=== PATIENT | female | born 1980 | race Caucasian/White ===

== ENCOUNTER → 2016-10-13 | Outpatient (CLI) | payer MEDICAID, OTHER ==
[~2016-10-13] MED LIST: ACET1TAB86 PO; ALPR.5 PO; IBUP-232 PO; METR-1 PO; PRENTAB PO; PROC2.5C RECTAL
== END ==
LOC: HPND 10:54
PROVIDERS: ATTEND Obstetrics & Gynecology Obstetrics
DX: O09.522 Supervision of elderly multigravida, second trimester (principal); O09.292 Supervision of pregnancy with other poor reproductive or obstetric history, second trimester; O99.322 Drug use complicating pregnancy, second trimester
CPT/HCPCS: 76811

== ENCOUNTER → 2016-10-27 | Outpatient (CLI) | payer MEDICAID, OTHER | LOC: HPND 15:31 | PROVIDERS: ATTEND Obstetrics & Gynecology | DX: O09.522 Supervision of elderly multigravida, second trimester (principal); O09.292 Supervision of pregnancy with other poor reproductive or obstetric history, second trimester; O35.3XX0 Maternal care for (suspected) damage to fetus from viral disease in mother, not applicable or unspecified; O99.322 Drug use complicating pregnancy, second trimester; Z3A.21 21 weeks gestation of pregnancy | CPT/HCPCS: 76815; 76817 ==

== ENCOUNTER → 2016-11-24 | Outpatient (CLI) | payer MEDICAID, OTHER | LOC: HPND 13:30 | PROVIDERS: ATTEND Obstetrics & Gynecology | DX: O09.522 Supervision of elderly multigravida, second trimester (principal); O09.292 Supervision of pregnancy with other poor reproductive or obstetric history, second trimester; O35.3XX0 Maternal care for (suspected) damage to fetus from viral disease in mother, not applicable or unspecified; O99.322 Drug use complicating pregnancy, second trimester; Z36 Encounter for antenatal screening of mother; Z3A.25 25 weeks gestation of pregnancy | CPT/HCPCS: 76816; 76817; 76825; 76827; 93325 ==

== ENCOUNTER → 2017-01-01 | Outpatient (CLI) | payer MEDICAID | LOC: HPND 09:04 | PROVIDERS: ATTEND Obstetrics & Gynecology | DX: O09.522 Supervision of elderly multigravida, second trimester (principal); O09.292 Supervision of pregnancy with other poor reproductive or obstetric history, second trimester | CPT/HCPCS: 76816 ==

== ENCOUNTER → 2017-01-27 | Outpatient (CLI) | payer MEDICAID ==
[~2017-01-27] MED LIST changes: -ALPR.5 PO; -METR-1 PO
== END ==
LOC: HPND 10:14
PROVIDERS: ATTEND Obstetrics & Gynecology
DX: O09.523 Supervision of elderly multigravida, third trimester (principal); O09.293 Supervision of pregnancy with other poor reproductive or obstetric history, third trimester
CPT/HCPCS: 76816

== ENCOUNTER → 2017-02-18 | Outpatient (CLI) | payer MEDICAID | LOC: HPND 14:23 | PROVIDERS: ATTEND Obstetrics & Gynecology | DX: O36.62X0 Maternal care for excessive fetal growth, second trimester, not applicable or unspecified (principal) | CPT/HCPCS: 76816; 76818; 76820; 76821 ==

== ENCOUNTER 2017-02-22 16:27 | Inpatient (IN) | payer MEDICAID ==
[2017-02-22] VITALS (10 sets, daily range): BP systolic 133–139; BP diastolic 69–80; PULSE 72–76; RESP 18; TEMP 97.8–99.1
[~2017-02-22 16:27] MED LIST changes: -ACET1TAB86 PO; -IBUP-232 PO; -PROC2.5C RECTAL
[2017-02-22] MEDS ORDERED: LACTATED RINGER'S 1000 ML INJ 1,000 ML IV PRN (16:31)
[2017-02-22] MEDS ORDERED: SODIUM CHLORID 0.9% 500 ML INJ 500 ML IV PRN (16:45)
[2017-02-22] MEDS ORDERED: CITRIC ACID-SODIUM CITRATE LIQ 30 ML UDC PO SCH (16:45)
[2017-02-22] MEDS ORDERED: ONDANSETRON HCL 4 MG/2 ML VIAL IV PRN (16:45)
[2017-02-22] MEDS ORDERED: MINERAL OIL 10 ML VIAL TOPICAL PRN (16:45)
[2017-02-22] MEDS ORDERED: LIDOCAINE HCL 1% 50 ML VIAL INFIL PRN (16:45)
[2017-02-22] MEDS ORDERED: OXYTOCIN 30 UNITS-500ML PREMIX 500 ML IV ONE (16:45)
[2017-02-22] MEDS ORDERED: LIDOCAINE HCL 1% 50 ML VIAL I-DERMAL PRN (16:45)
[2017-02-22] MEDS ORDERED: SODIUM CHLOR 0.9% 1000 ML INJ 1,000 ML IV PRN (16:51)
[2017-02-22] MEDS ORDERED: SODIUM CHLORIDE 0.9% FLUSH 10 ML FLUSH IV FLUSH PRN (17:15)
[2017-02-22] MEDS ORDERED: DINOPROSTONE 10 MG VAG INSERT VAGINAL ONE ×2 (17:15→17:45)
--- NOTE | 2017-02-22 17:29 | HHI.HP ---
HPI Chief Complaint Induction of labor Date Seen: Feb 22, 2017 Time Seen: 17:12 Travel History International Travel<30 Days: No Contact w/Intl Traveler<30Days: No Known Affected Area: No History of Present Illness HPI Patient is a 36 year old A1 at 38 and 1/7 weeks gestation by MONSTER 03/07/2017, who presents to the OB ED for induction of labor due to IUGR (9th percentile on 02/18/17). She denies leakage of fluid, vaginal bleeding, and contractions. She feels baby moving regularly. She denies VIERA/N/V/D/fever/sick contacts/SOB/calf pain/dizziness/seeing spots. OB care is with [facility] and she is status in September 2016. She had limited follow-up visits but was following with M due to AMA and history of stillborn at 5 months. She endorses a remote history of opioid abuse denies any this . She does endorse tobacco use. She did not obtain any labs through [facility]. Para: 1 : 2 History Past Medical History Medical History: Denies Significant Hx Obstetric History Obstetric History G1: Stillbirth at 19 weeks, unknown etiology G2: Current Ultrasound 02/18/2017: If [id number] grams, 9th percentile, ARMOND 11.1 cm, BPP 10/10 placenta is grade 12, anterior, no previa. Vertex presentation. Patient states she knows he is having ago. Patient did not obtain labs MSM consulted due to AMA and previous stillbirth Per [facility] chart: NON COMPLICANT WITH PNC AT [facility], has not been in since SEP. only has gone to ultrasounds at [facility]. 2014-stillborn at 19 wks--PPROM, delivered at home AMA Declined amnio, no genetic screening Ronal 1:279 Hx of IV drug use- Xanax BV--given rx 09/21-Neg/hr hpv 10/14/16, Give Pt a Lab Req for Drug screen at next visit. Past Surgical History Surgical History: No Previous Surgery Family History Family History: Negative Social History Alcohol Use: Yes (occasional wine "here and there") Tobacco Use: Yes (5 cigarettes per week) Substance Abuse: Yes (remote opiate use) Allergies-Medications (Allergen,Severity, Reaction): Coded Allergies: No Known Allergies (Unverified , 01/13/17) Home Meds Active Scripts Vit W/ Ferrous Fumara (Prenate Elite 26-0.6-0.4 mg)1 Tab Tab1 Tab PO DAILY #90 BOTTLE Ref 3 Prov:Tania Miranda CNM [employer]ER 09/22/16 Vit Without Vit A W/ (Nestabs Dha 32-1 mg)1 Jean Pierre Jean Pierre Sample #4 Prov:Laura Curtis ST[employer]KER 09/21/16 Review of Systems Except as stated in HPI: all other systems reviewed are Neg Physical Exam Vital Signs Date Time Temp Pulse Resp B/P Pulse Ox O2 Delivery O2 Flow Rate FiO2 02/22/17 17:04 76 139/75 02/22/17 17:04 99.1 18 Narrative GENERAL: Well-nourished, well-developed female in no apparent distress SKIN: Warm and dry. HEAD: Normocephalic and atraumatic. EYES: No scleral icterus. No injection or drainage. ENT: No nasal drainage noted. Mucous membranes pink. Airway patent. NECK: Supple, trachea midline. No JVD. CARDIOVASCULAR: Regular rate and rhythm without murmurs, gallops, or rubs. RESPIRATORY: Breath sounds equal bilaterally. No accessory muscle use. ABDOMEN/GI: Abdomen soft, non-tender, bowel sounds present, no rebound, no guarding GENITOURINARY: External Genitalia: intact and normal in appearance Cervix: Closed/thick/high, moderate consistency Presentation: Vertex Membranes: Intact Uterine Contractions: Absent FHT's: Category: 1 Baseline: 140 Reactive:y to 160 Variability: mod Decels: one variable noted EXTREMITIES: No cyanosis or edema. BACK: Nontender without obvious deformity. No CVA tenderness. NEUROLOGICAL: Awake and alert. Motor and sensory grossly within normal limits. Five out of 5 muscle strength in all muscle groups. Normal speech. Data Data Vital Signs Reviewed: Yes (T 90 9.1F, R 18, pulse 76, BP 139/75) Orders Admit To Inpatient (02/22/17 ) Code Status (02/22/17 16:31) Vital Signs (Adult) .Per protocol (02/22/17 16:31) Activity Oob Ad Bridget (02/22/17 16:31) Heart (02/22/17 16:31) Amnioinfusion (02/22/17 16:31) Urinary Catheter Management .ONCE (02/22/17 16:31) Lactated Ringer's 1000 Ml Inj (Lr 1000 M (02/22/17 17:00) Lactated Ringer's 1000 Ml Inj (Lr 1000 M (02/22/17 16:31) Sodium Chlorid 0.9% 500 Ml Inj (Ns 500 M (02/22/17 16:45) Sodium Chlor 0.9% 1000 Ml Inj (Ns 1000 M (02/22/17 16:51) Lidocaine 1% Inj (50 Ml) (Xylocaine 1% I (02/22/17 16:45) Citric Acid-Sodium Citrate Liq (Bicitra (02/22/17 16:45) Ondansetron Inj (Zofran Inj) (02/22/17 16:45) Fentanyl Inj (Fentanyl Inj) (02/22/17 16:45) Fentanyl Inj (Fentanyl Inj) (02/22/17 16:45) Complete Blood Count With Diff (02/22/17 16:31) Hold Clot (02/22/17 16:31) Abo/Rh Blood Type (02/22/17 16:31) Urinalysis - C+S If Indicated (02/22/17 16:31) Resp Oxygen Non Rebreathe Mask (02/22/17 ) ^ Epidural / Intrathecal Infus (02/22/17 16:31) Oxytocin 30 Units-500ml Premix (Pitocin (02/22/17 16:45) Lidocaine 1% Inj (50 Ml) (Xylocaine 1% I (02/22/17 16:45) Light Mineral Oil (Muri-Lube Oil) (02/22/17 16:45) Inpatient Certification (02/22/17 ) Specimen To Be Collected PRN (02/22/17 16:31) Group B Strep Pcr (Rapid) (02/22/17 16:37) Ob/Psych Drug Screen, Urine (02/22/17 16:39) Diet Clear Liquid (02/22/17 Dinner) Hepatitis Profile (02/22/17 16:48) No Care Spec Serology (02/22/17 16:48) Rapid Plasma Regin (Rpr) W Ttr (02/22/17 16:51) Rubella Immune Status (02/22/17 16:51) ^ Labor Induction (02/22/17 17:04) ^ Saline Lock (02/22/17 17:04) ^ Vaginal Insert (02/22/17 17:04) ^ Vaginal Lavage (02/22/17 17:04) Heart (02/22/17 17:04) Sodium Chloride 0.9% Flush (Ns Flush) (02/22/17 21:00) Sodium Chloride 0.9% Flush (Ns Flush) (02/22/17 17:15) Dinoprostone Vag Insert (Cervidil Vag In (02/22/17 17:15) Dinoprostone Vag Insert (Cervidil Vag In (02/22/17 17:15) Assessment/Plan Problem List: (1) with 38 completed weeks gestation (2) Poor patient attendance of care (3) Tobacco use complicating (4) History of opioid abuse (5) Previous stillbirth or demise, antepartum Assessment and Plan 36-year-old at 38 and 3/7 weeks who is admitted for induction of labor due to IUGR per [facility] recommendations. She is a [facility] and patient. Intrauterine : Category 1 tracing Patient desires vaginal delivery Intact membranes Initiate cervical ripening with Cervidil overnight Start Pitocin in the morning Epidural for pain CBC, UA, type and screen ordered Monitor heart tones Routine care Monitor vital signs. Noted initial temperature 99.1 F GBS unknown: Rapid GBS ordered. Start IV penicillin per protocol if positive History of opiate abuse: Per patient report. UDS ordered History of tobacco abuse: FHT, monitor for withdrawal post- SDW Kymberly Romo MD R1 Feb 22, 2017 17:29
[2017-02-22] MEDS: LACTATED RINGER'S 1000 ML INJ 1,000 ML IV SCH (17:48)
[2017-02-22 18:20] LABS: AUTOMATED NEUTROPHIL # 9.7 TH/MM3 (1.8-7.7); BASOPHIL % 0.4 % (0.0-2.0); EOSINOPHIL % 0.1 % (0.0-4.0); HEMO FLAGS DIFF FINAL; LYMPH % 16.6 % (9.0-44.0); LYMPHOCYTE # 2.1 TH/MM3 (1.0-4.8); MEAN CELL VOLUME 90.4 FL (80.0-100.0); MEAN CORPUSCULAR HGB CONC 33.2 % (32.0-36.0); MONO % 4.8 % (0.0-8.0); NEUT % 78.1 % (16.0-70.0); PLATELET COUNT 227 TH/MM3 (150-450); RED BLOOD COUNT 3.77 MIL/MM3 (4.00-5.30); RED CELL DISTRIBUTION WIDTH 12.7 % (11.6-17.2); WHITE BLOOD COUNT 12.5 TH/MM3 (4.0-11.0)
[2017-02-22 18:23] LABS: BLOOD, URINE NEG (NEG); COMMENT (UR) CULT NOT INDICATED; CULTURE IF INDICATED CULT NOT INDICATED; GLUCOSE,URINE NEG (NEG); KETONE, URINE NEG (NEG); MUCUS URINE FEW /lpf (OCC); NITRITE,URINE NEG (NEG); SQUAMOUS EPITHELIAL CELL URINE 1 /hpf (0-5); URINE COLOR YELLOW (YELLW/STRAW)
[2017-02-22 18:33] LABS: AMPHETAMINE, URINE NEG (NEG); BARBITURATES, URINE NEG (NEG); COCAINE, URINE NEG (NEG)
[2017-02-22] MEDS: SODIUM CHLORIDE 0.9% FLUSH 10 ML FLUSH IV FLUSH SCH (21:00)
[2017-02-22 21:18] LABS: RUBELLA IGG ANTIBODY 19.5 IU/mL (10.0-500.0); RUBELLA STATUS IMMUNE (IMMUNE)
[2017-02-22] MEDS ORDERED: ZOLPIDEM TARTRATE 10 MG TAB PO PRN (22:00)
[2017-02-23] VITALS (70 sets, daily range): BP systolic 102–144; BP diastolic 43–90; PULSE 58–101; RESP 18; TEMP 98–98.4
[2017-02-23] MEDS: LACTATED RINGER'S 1000 ML INJ 1,000 ML IV SCH ×3 (01:00→18:21)
--- NOTE | 2017-02-23 06:13 | PD.LABORPN ---
Subjective Subjective Patient resting comfortably in bed. She notes some cramping overnight but denies any contractions, vaginal bleeding, discharge, or gush or leaking of fluid. Positive movement. Objective Vital Signs Vital Signs Date Time Temp Pulse Resp B/P Pulse Ox O2 Delivery O2 Flow Rate FiO2 02/23/17 05:45 18 02/23/17 04:45 18 02/23/17 03:45 18 02/23/17 02:45 98.0 18 02/23/17 02:38 67 120/68 02/23/17 01:45 18 02/23/17 00:45 18 02/22/17 23:45 18 02/22/17 22:45 18 Objective Pelvic Exam: Cervix: posterior Dilatation: 3 Effacement: 50 Station: -2 Presentation: vertex Membranes: intact Uterine Contractions: none FHT's: Category: I Baseline: 145 Reactive: + Variability: moderate Decels: none Assessment/Plan Problem List: (1) with 38 completed weeks gestation (2) Poor patient attendance of care (3) Tobacco use complicating (4) History of opioid abuse (5) Previous stillbirth or demise, antepartum Assessment and Plan 36 year old at 38-2/7 weeks gestation. 1. IUP- Category I tracing, reassuring. 2. IOL for IUGR- Cervidil overnight with cervical change. Will start Pitocin augmentation this AM at 2-2-30. 3. GBS negative. 4. Poor care- labs obtained- HIV negative, rubella immune, hepatitis and RPR pending. 5. History of substance abuse- UDS positive for marijuana. 6. Anticipate vaginal delivery. Nury Schmitz Dr., MD R2 Feb 23, 2017 06:12
[2017-02-23] MEDS ORDERED: OXYTOCIN 30 UNITS-500ML PREMIX 500 ML IV SCH (06:15)
--- NOTE | 2017-02-23 08:27 | PD.LABORPN ---
Subjective Subjective Patient is feeling some contractions. Getting up and walking around without difficulty. Pitocin at 4mU/min Objective Vital Signs Vital Signs Date Time Temp Pulse Resp B/P Pulse Ox O2 Delivery O2 Flow Rate FiO2 02/23/17 07:31 64 141/88 02/23/17 06:56 98.1 66 18 133/85 02/23/17 06:55 69 02/23/17 05:45 18 02/23/17 04:45 18 02/23/17 03:45 18 02/23/17 02:45 98.0 18 02/23/17 02:38 67 120/68 02/23/17 01:45 18 02/23/17 00:45 18 Objective Pelvic Exam: Cervix: soft Dilatation:3 Effacement:50 Station: -2 Presentation: vertex Membranes: AROM, lightly meconium stained fluid, Uterine Contractions: q3min FHT's: Category: 1 Baseline: 135 Reactive: y to 150 Variability: mod Decels: absent Assessment/Plan Problem List: (1) with 38 completed weeks gestation (2) Poor patient attendance of care (3) Tobacco use complicating (4) History of opioid abuse (5) Previous stillbirth or demise, antepartum Assessment and Plan 36 year old at 38-2/7 weeks gestation admitted for IOL 1. IUP- Category I tracing, reassuring. 2. IOL for IUGR- Cervidil overnight with cervical change. Continue Pitocin augmentation this AM at 2-2-30. 3. GBS negative. 4. Poor care- labs obtained- HIV negative, rubella immune, hepatitis and RPR pending. 5. History of substance abuse- UDS positive for marijuana. 6. Anticipate vaginal delivery. 7. AROM @ 0803, lightly meconium stained sdw Dr. Claros, Kymberly Durán MD R1 Feb 23, 2017 08:27
[2017-02-23] MEDS: SODIUM CHLORIDE 0.9% FLUSH 10 ML FLUSH IV FLUSH SCH (09:00)
[2017-02-23] MEDS ORDERED: fentaNYL 2MCG-BUPIV 0.125% INJ 100 ML ONE (10:21)
[2017-02-23 10:25] LABS: RAPID PLASMA REAGIN SCREEN NON-REACTIVE (NON-REACTVE)
[2017-02-23] MEDS ORDERED: ePHEDrine/NS 25 MG/5 ML SYR ONE (10:42)
--- NOTE | 2017-02-23 11:56 | PD.LABORPN ---
Subjective Subjective Patient got her epidural placed and has no longer feeling contractions. She is planning to take a short nap now.no new complaints or concerns. Pitocin at 10mU/ min (Kymberly Ramirez MD R1) Objective Vital Signs Vital Signs Date Time Temp Pulse Resp B/P Pulse Ox O2 Delivery O2 Flow Rate FiO2 02/23/17 11:32 79 114/80 02/23/17 11:30 77 126/83 02/23/17 11:15 80 126/79 02/23/17 11:10 70 118/64 02/23/17 11:10 64 02/23/17 11:05 68 02/23/17 11:05 69 116/57 02/23/17 11:03 18 02/23/17 11:00 68 114/54 02/23/17 11:00 71 02/23/17 10:56 71 109/43 02/23/17 10:55 72 02/23/17 10:50 70 108/53 02/23/17 10:50 63 02/23/17 10:46 77 108/60 02/23/17 10:45 73 02/23/17 10:40 66 02/23/17 10:40 84 124/72 02/23/17 10:38 78 120/89 02/23/17 10:36 69 144/75 02/23/17 10:35 85 02/23/17 10:30 74 138/83 02/23/17 10:28 73 137/78 02/23/17 10:17 67 02/23/17 10:16 18 02/23/17 10:02 98.3 02/23/17 09:29 69 136/74 02/23/17 09:28 18 02/23/17 08:31 18 02/23/17 08:30 58 126/75 02/23/17 07:31 64 141/88 02/23/17 06:56 98.1 66 18 133/85 02/23/17 06:55 69 02/23/17 05:45 18 02/23/17 04:45 18 Objective Pelvic Exam: Cervix: soft Dilatation:3-4 Effacement:60 Station: -2 Presentation: vertex Membranes: AROM @ 0803, lightly meconium stained fluid Uterine Contractions: q4min FHT's: Category: 1 Baseline: 140 Reactive: y to 150 Variability: mod Decels: absent (Kymberly Ramirez MD R1) Assessment/Plan Problem List: (1) with 38 completed weeks gestation Plan: 36 year old at 38-2/7 weeks gestation admitted for IOL. Epidural was placed at approximately 10:30 AM. Slow cervical change. Expect vaginal delivery. Currently at Pitocin dose of 10 mU/min 1. IUP- Category I tracing, reassuring. 2. IOL for IUGR- Cervidil overnight with cervical change. Continue Pitocin augmentation this AM at 30. 3. GBS negative. 4. Poor care- labs obtained- HIV negative, rubella immune, hepatitis and RPR pending. 5. History of substance abuse- UDS positive for marijuana. 6. Anticipate vaginal delivery. 7. AROM @ 0803, lightly meconium stained dw Dr. Salas, Dr. Burns (2) Poor patient attendance of care (3) Tobacco use complicating (4) History of opioid abuse (5) Previous stillbirth or demise, antepartum (Kymberly Ramirez MD R1) Attestation Patient seen at bedside. Plan reviewed with patient. All questions answered. (Sara Salas MD) Kymberly Ramirez MD R1 Feb 23, 2017 11:56 Sara Salas MD Feb 23, 2017 12:40
[2017-02-23] MEDS ORDERED: NO SYSTEM NARCOTICS PRN (12:30)
[2017-02-23] MEDS ORDERED: DO NOT ADMINISTER ANTICOAGULANTS PRN (12:30)
[2017-02-23] MEDS ORDERED: ePHEDrine/NS 25 MG/5 ML SYR IV PRN (12:30)
[2017-02-23] MEDS ORDERED: fentaNYL 2MCG-BUPIV 0.125% 100 ML EPIDURAL SCH (12:30)
--- NOTE | 2017-02-23 15:24 | PD.LABORPN ---
Subjective Subjective Patient without complaints. S/p epidural. Objective Vital Signs Vital Signs Date Time Temp Pulse Resp B/P Pulse Ox O2 Delivery O2 Flow Rate FiO2 02/23/17 14:40 90 18 02/23/17 14:35 81 02/23/17 14:34 98.2 02/23/17 14:31 88 125/64 02/23/17 14:30 92 02/23/17 14:25 87 02/23/17 14:20 101 02/23/17 14:15 93 02/23/17 13:59 75 126/69 02/23/17 13:59 18 02/23/17 13:55 72 02/23/17 13:50 64 02/23/17 13:45 78 02/23/17 13:40 99 02/23/17 13:31 71 137/61 02/23/17 13:14 18 02/23/17 13:00 70 127/79 02/23/17 12:31 65 108/53 02/23/17 12:03 98.2 02/23/17 12:02 18 02/23/17 12:00 73 128/78 02/23/17 11:32 79 114/80 02/23/17 11:30 77 126/83 02/23/17 11:15 80 126/79 02/23/17 11:10 70 118/64 02/23/17 11:10 64 02/23/17 11:05 68 02/23/17 11:05 69 116/57 02/23/17 11:03 18 02/23/17 11:00 68 114/54 02/23/17 11:00 71 02/23/17 10:56 71 109/43 02/23/17 10:55 72 02/23/17 10:50 70 108/53 02/23/17 10:50 63 02/23/17 10:46 77 108/60 02/23/17 10:45 73 02/23/17 10:40 66 02/23/17 10:40 84 124/72 02/23/17 10:38 78 120/89 02/23/17 10:36 69 144/75 02/23/17 10:35 85 02/23/17 10:30 74 138/83 02/23/17 10:28 73 137/78 02/23/17 10:17 67 02/23/17 10:16 18 02/23/17 10:02 98.3 02/23/17 09:29 69 136/74 02/23/17 09:28 18 02/23/17 08:31 18 02/23/17 08:30 58 126/75 02/23/17 07:31 64 141/88 Objective Pelvic Exam: Cervix: [-] Dilatation: [-] Effacement: [-] Station: [-] Presentation: [-] Membranes: [intact or ruptured] Uterine Contractions: [-] FHT's: Category: [1] Baseline: [140s] Reactive: [y] Variability: [moderate] Decels: [early decelerations] Assessment/Plan Problem List: (1) Poor patient attendance of care (2) Tobacco use complicating (3) History of opioid abuse (4) Previous stillbirth or demise, antepartum (5) with 38 completed weeks gestation Assessment and Plan IUP at 38 weeks, labor, induction secondary to IUGR. D/w patient in private, per patient's desire, positive Hep C lab results. Patient with a history of IV drug abuse in the past, last use this year during . D/w patient need for f/u with GI. All questions answered at this time. Continue to monitor. Sara Salas MD Feb 23, 2017 15:24
[2017-02-23 16:30] LABS: ALT (GPT) 58 U/L (10-53); ANION GAP 8 MEQ/L (5-15); AST (GOT) 38 U/L (15-37); BICARBONATE 26.5 MEQ/L (21.0-32.0); BLOOD UREA NITROGEN 11 MG/DL (7-18); CHLORIDE 104 MEQ/L (98-107); GLOMERULAR FILTRATION RATE 97 ML/MIN (>89); POTASSIUM 3.8 MEQ/L (3.5-5.1); SODIUM (NA) 138 MEQ/L (136-145)
[2017-02-23 16:32] LABS: ALKALINE PHOSPHATASE 155 U/L (45-117); TOTAL BILIRUBIN ADULT 0.1 MG/DL (0.2-1.0)
[2017-02-23] MEDS ORDERED: ACETAMINOPHEN 325 MG TAB PO ONE (18:15)
--- NOTE | 2017-02-23 22:40 | PD.OB.DELI ---
Delivery Date: Feb 23, 2017 Anesthesia: Epidural Episiotomy: None Vaginal Delivery: Normal Presentation: Occiput anterior Nuchal Cord: None Delayed cord clamping (45 sec): Yes : Female One Minute : 8 Five Minute : 9 Weight: 2395 Placenta: Spontaneous delivery Laceration: 1 deg (Bilateral 1st degree periurtheral- noted to be hemostatic) Additional Information Cord blood obtained, using sterile supplies provided in set. Sara Salas MD Feb 23, 2017 22:40
[2017-02-23] MEDS ORDERED: ONDANSETRON ODT 4 MG TAB PO PRN (22:45)
[2017-02-23] MEDS ORDERED: BENZOCAINE 20% TOPICAL SPRAY 60 ML CAN TOPICAL PRN (22:45)
[2017-02-23] MEDS ORDERED: WITCH HAZEL 50%/GLYCERIN 12.5% 40 PAD JAR TOPICAL PRN (22:45)
[2017-02-23] MEDS ORDERED: SODIUM CHLORIDE 0.9% FLUSH 10 ML FLUSH IV FLUSH SCH (22:45)
[2017-02-23] MEDS ORDERED: ALUMINUM/MAGNESIUM/SIMETH 30 ML CUP PO PRN (22:45)
[2017-02-23] MEDS ORDERED: DOCUSATE SODIUM 50 MG/SENNA 8.6 MG TAB PO PRN (22:45)
[2017-02-23] MEDS ORDERED: SODIUM CHLORIDE 0.9% FLUSH 10 ML FLUSH IV FLUSH PRN (22:45)
[2017-02-24] VITALS: BP 128/74; PULSE 88
[2017-02-24 01:00] VITALS: BP 145/76; PULSE 76; RESP 18; TEMP 99.9
[2017-02-24] MEDS: IBUPROFEN 600 MG TAB PO PRN ×2 (01:26→09:00)
[2017-02-24 05:00] VITALS: TEMP 98.8
--- NOTE | 2017-02-24 06:46 | HHI.OB ---
Subjective Post Day: 1 Remarks day # 1. AFVSS overnight. Decreased lochia. Denies dysuria. No breast tenderness. She is feeding the baby via formula. Appetite good. No nausea or vomiting. Ambulating well. Denies calf pain or shortness of breath. Otherwise, she is doing well this morning and has no other concerns. (Kymberly Ramirez MD R1) Remarks Patient seen and examined. Agree with resident's plan. (Sara Salas MD) Objective Vitals/I&O Vital Signs Date Time Temp Pulse Resp B/P Pulse Ox O2 Delivery O2 Flow Rate FiO2 02/24/17 05:00 98.8 02/24/17 01:00 99.9 76 18 145/76 02/24/17 00:00 88 128/74 02/23/17 23:51 94 141/90 02/23/17 17:57 78 133/77 02/23/17 17:56 18 02/23/17 17:00 80 123/84 02/23/17 16:45 98.4 02/23/17 16:43 76 135/78 02/23/17 16:42 18 02/23/17 16:35 79 02/23/17 16:30 84 02/23/17 16:05 77 02/23/17 16:01 80 111/65 02/23/17 16:00 77 02/23/17 15:33 75 102/78 02/23/17 15:32 18 02/23/17 15:30 80 02/23/17 14:40 90 18 02/23/17 14:35 81 02/23/17 14:34 98.2 02/23/17 14:31 88 125/64 02/23/17 14:30 92 02/23/17 14:25 87 02/23/17 14:20 101 02/23/17 14:15 93 02/23/17 13:59 75 126/69 02/23/17 13:59 18 02/23/17 13:55 72 02/23/17 13:50 64 02/23/17 13:45 78 02/23/17 13:40 99 02/23/17 13:31 71 137/61 02/23/17 13:14 18 02/23/17 13:00 70 127/79 02/23/17 12:31 65 108/53 02/23/17 12:03 98.2 02/23/17 12:02 18 02/23/17 12:00 73 128/78 02/23/17 11:32 79 114/80 02/23/17 11:30 77 126/83 02/23/17 11:15 80 126/79 02/23/17 11:10 70 118/64 02/23/17 11:10 64 02/23/17 11:05 68 02/23/17 11:05 69 116/57 02/23/17 11:03 18 02/23/17 11:00 68 114/54 02/23/17 11:00 71 02/23/17 10:56 71 109/43 02/23/17 10:55 72 02/23/17 10:50 70 108/53 02/23/17 10:50 63 02/23/17 10:46 77 108/60 02/23/17 10:45 73 02/23/17 10:40 66 02/23/17 10:40 84 124/72 02/23/17 10:38 78 120/89 02/23/17 10:36 69 144/75 02/23/17 10:35 85 02/23/17 10:30 74 138/83 02/23/17 10:28 73 137/78 02/23/17 10:17 67 02/23/17 10:16 18 02/23/17 10:02 98.3 02/23/17 09:29 69 136/74 02/23/17 09:28 18 02/23/17 08:31 18 02/23/17 08:30 58 126/75 02/23/17 07:31 64 141/88 02/23/17 06:56 98.1 66 18 133/85 02/23/17 06:55 69 Objective Remarks GENERAL: Well-nourished, well-developed female in no apparent distress. CARDIOVASCULAR: Regular rate and rhythm without murmurs, gallops, or rubs. RESPIRATORY: Breath sounds equal bilaterally. No accessory muscle use. ABDOMEN/GI: Abdomen soft, non-tender. Fundus: Firm, non-tender at umbilicus. GENITOURINARY: Light to moderate bleeding. EXTREMITIES: No cyanosis or edema, non-tender, without signs of DVT. Medications and IVs Current Medications Medications (Trade) Dose Ordered Sig/Rosanne Route Start Time Stop Time Status Last Admin Lactated Ringer's 1,000 ml @ 125 mls/hr Q8H IV 02/22/17 17:00 02/23/17 18:21 Lactated Ringer's 1,000 ml @ 3,000 mls/hr Q20M PRN IV 02/22/17 16:31 (NS 1000 ml Inj) 1,000 ml @ 100 mls/hr Q10H PRN IV 02/22/17 16:51 (Zofran Inj) 4 mg Q6H PRN IV 02/22/17 16:45 (fentaNYL INJ) 50 mcg Q1H PRN IV PUSH 02/22/17 16:45 02/23/17 07:05 (fentaNYL INJ) 100 mcg Q1H PRN IV PUSH 02/22/17 16:45 02/23/17 08:35 (Muri-Lube Oil) 10 ml UNSCH PRN TOPICAL 02/22/17 16:45 Zolpidem Tartrate 10 mg 10 mg HS PRN PO 02/22/17 22:00 02/22/17 22:30 (Pitocin 30 Units-NS 500 ml Premix) 500 ml @ 0 mls/hr TITRATE IV 02/23/17 06:15 02/23/17 06:55 Miscellaneous Information No systemic narcotics to be given except... UNSCH PRN .XX 02/23/17 12:30 02/24/17 12:29 Miscellaneous Information DO NOT ADMINISTER ANY ANTICOAGUL... UNSCH PRN .XX 02/23/17 12:30 02/24/17 12:29 (fentaNYL 2MCG-BUPIV 0.125% INJ) 100 ml @ 0 mls/hr TITRATE EPIDURAL 02/23/17 12:30 (ePHEDrine/NS 25 MG/5 ML SYR) 10 mg UNSCH PRN IV 02/23/17 12:30 02/24/17 12:29 (NS Flush) 2 ml BID IV FLUSH 02/23/17 22:45 (NS Flush) 2 ml UNSCH PRN IV FLUSH 02/23/17 22:45 (Tylenol) 650 mg Q4H PRN PO 02/23/17 22:45 (Motrin) 600 mg Q6H PRN PO 02/23/17 22:45 02/24/17 01:26 (Americaine 20% Top Spr) 1 spray Q4H PRN TOPICAL 02/23/17 22:45 02/24/17 01:26 (Tucks Pads) 1 applic QID PRN TOPICAL 02/23/17 22:45 02/24/17 01:26 (Paty-Colace) 2 tab Q12H PRN PO 02/23/17 22:45 (Mag-Al Plus Susp Liq) 15 ml Q8H PRN PO 02/23/17 22:45 (Zofran Odt) 4 mg Q6H PRN PO 02/23/17 22:45 (Kymberly Ramirez MD R1) Assessment/Plan Problem List: (1) Poor patient attendance of care (2) Tobacco use complicating (3) History of opioid abuse (4) Previous stillbirth or demise, antepartum (5) with 38 completed weeks gestation Assessment and Plan 36 year old [id number] who is PPD#1 s/p . Post- -Continue routine care. -Percocet and Motrin PRN pain. -Encouraged OOB. Advised pelvic rest for 6 wks. -Re: ctrl, she is undecided. -Anticipate discharge tomorrow. History of opiate abuse Reports using "opiates" via IV as late as 3 months into UDS is negative for opiates, positive for cannabinoids Hepatitis C positive Antibody positive on labs collected at admission LFTs are mildly elevated, patient is asymptomatic Patient was counseled to follow-up as an outpatient to see a GI specialist and discuss treatment options Baby will need screening hep C RNA testing at [address] Salas (Kymberly Ramirez MD R1) Kymberly Ramirez MD R1 Feb 24, 2017 06:46 Sara Salas MD Feb 24, 2017 09:23
[2017-02-24 08:00] VITALS: BP 140/84; PULSE 75; RESP 16; TEMP 98.4
--- NOTE | 2017-02-24 09:32 | PD.CONS ---
HPI History of Present Illness This is a 36 year old female who had a vaginal delivery yesterday at 38 weeks. She has been noncompliant with care and had not been seen since September. She was noted to have antibodies for hepatitis C and GI has been consulted for her to get established for outpatient follow-up. She denies any known history of hepatitis in the past. She does have a history of IV drug abuse, but states that she has not used any illicit drugs during her . She reports that she occasionally drinks alcohol and smokes marijuana, although not during her . Of note, she was positive for cannabinoids on her drug screen. She reports that she is currently having some mild abdominal cramping associated with childbirth, but denies any other GI symptoms. She states that she did not have any abdominal pain prior to her labor. She denies any nausea, vomiting, reflux, heartburn, constipation, diarrhea, melena, hematochezia. Labs from (02/22/17) revealed antibodies for HCV. (Kayla Young) PFSH Past Medical History Denies Past Surgical History Denies (Kayla Young) Coded Allergies: No Known Allergies (Unverified , 01/13/17) Medications Allergies Coded Allergies Type Severity Reaction Last Updated Verified No Known Allergies 01/13/17 No Active Scripts Medications Dose Route/Sig Days Date Category Prenate Elite 26-0.6-0.4 mg ( Vit W/ Ferrous Fumara) 1 Tab Tab 1 Tab PO DAILY 09/22/16 Rx Nestabs Dha 32-1 mg ( Vit Without Vit A W/) 1 Jean Pierre Jean Pierre 09/21/16 Family History Reports that mother had breast cancer, alive and well Social History Occasional ETOH use. Smoked 1 PPD, states she cut this down to once a day during Hx of IVDA- remote + Cannabinoids (Kayla Young) Review of Systems Constitutional: DENIES: Fatigue Respiratory: DENIES: Cough Cardiovascular: DENIES: Chest pain Gastrointestinal: COMPLAINS OF: Abdominal pain, DENIES: Black stools, Bloody stools, Constipation, Diarrhea, Nausea, Vomiting, Anorexia, Swelling of Abdomen , Heartburn, Hematemesis Integumentary: DENIES: Abnormal pigmentation Hematologic/lymphatic: DENIES: Bruising Neurologic: DENIES: Headache Psychiatric: DENIES: Confusion (Kayla Young) GI Exam Vitals I&O Vital Signs Date Time Temp Pulse Resp B/P Pulse Ox O2 Delivery O2 Flow Rate FiO2 02/24/17 08:00 98.4 16 02/24/17 08:00 75 140/84 02/24/17 05:00 98.8 02/24/17 01:00 99.9 76 18 145/76 02/24/17 00:00 88 128/74 02/23/17 23:51 94 141/90 02/23/17 17:57 78 133/77 02/23/17 17:56 18 02/23/17 17:00 80 123/84 02/23/17 16:45 98.4 02/23/17 16:43 76 135/78 02/23/17 16:42 18 02/23/17 16:35 79 02/23/17 16:30 84 02/23/17 16:05 77 02/23/17 16:01 80 111/65 02/23/17 16:00 77 02/23/17 15:33 75 102/78 02/23/17 15:32 18 02/23/17 15:30 80 02/23/17 14:40 90 18 02/23/17 14:35 81 02/23/17 14:34 98.2 02/23/17 14:31 88 125/64 02/23/17 14:30 92 02/23/17 14:25 87 02/23/17 14:20 101 02/23/17 14:15 93 02/23/17 13:59 75 126/69 02/23/17 13:59 18 02/23/17 13:55 72 02/23/17 13:50 64 02/23/17 13:45 78 02/23/17 13:40 99 02/23/17 13:31 71 137/61 02/23/17 13:14 18 02/23/17 13:00 70 127/79 02/23/17 12:31 65 108/53 02/23/17 12:03 98.2 02/23/17 12:02 18 02/23/17 12:00 73 128/78 02/23/17 11:32 79 114/80 02/23/17 11:30 77 126/83 02/23/17 11:15 80 126/79 02/23/17 11:10 70 118/64 02/23/17 11:10 64 02/23/17 11:05 68 02/23/17 11:05 69 116/57 02/23/17 11:03 18 02/23/17 11:00 68 114/54 02/23/17 11:00 71 02/23/17 10:56 71 109/43 02/23/17 10:55 72 02/23/17 10:50 70 108/53 02/23/17 10:50 63 02/23/17 10:46 77 108/60 02/23/17 10:45 73 02/23/17 10:40 66 02/23/17 10:40 84 124/72 02/23/17 10:38 78 120/89 02/23/17 10:36 69 144/75 02/23/17 10:35 85 02/23/17 10:30 74 138/83 02/23/17 10:28 73 137/78 02/23/17 10:17 67 02/23/17 10:16 18 02/23/17 10:02 98.3 02/23/17 09:29 69 136/74 02/23/17 09:28 18 Laboratory Test 02/23/17 14:45 Sodium Level 138 MEQ/L Potassium Level 3.8 MEQ/L Chloride Level 104 MEQ/L Carbon Dioxide Level 26.5 MEQ/L Anion Gap 8 MEQ/L Blood Urea Nitrogen 11 MG/DL Creatinine 0.68 MG/DL Estimat Glomerular Filtration 97 ML/MIN Rate Random Glucose 104 MG/DL Calcium Level 8.7 MG/DL Total Bilirubin 0.1 MG/DL Aspartate Amino Transf 38 U/L (AST/SGOT) Alanine Aminotransferase 58 U/L (ALT/SGPT) Alkaline Phosphatase 155 U/L Total Protein 7.0 GM/DL Albumin 2.5 GM/DL Date/Time Procedure Status Source Growth 02/22/17 17:05 Group B Streptococcus Screen - Preliminary Resulted Genital Genital Region RESULTS PENDING Physical Examination HEENT: Normocephalic; atraumatic; no jaundice. CHEST: CTA CARDIAC: RRR ABDOMEN: Soft, nondistended, nontender; no hepatosplenomegaly; bowel sounds are present in all four quadrants. EXTREMITIES: No clubbing, cyanosis, or edema. SKIN: Normal; no rash; no jaundice. RN BARIATRIC: No focal deficits; alert and oriented times three. (Kayla Young) Assessment and Plan Plan ASSESSMENT: - HCV Antibodies (+). Pt had vaginal delivery at 38 weeks yesterday. She was noted to have antibodies for HCV on February 22. GI was consulted to get established for outpatient fu. She denies any known history of hepatitis, although she does admit to a remote history of IVDA. She reports that she occasionally drinks ETOH and smokes marijuana. She stated not during , although her toxicology screen was positive for cannabinoids. D/W patient the need for further testing to see if she has an active HCV infection and that she does have risk factors for this with her past IVDA. D/W patient not if her nipples are cracked or bleeding. D/W patient that there is now treatment for HCV, but that she would have to abstain from all ETOH and illicit drugs x 6 months prior to being considered a candidate if she does have HCV. Pt verbalizes understanding. She states the plan is for discharge tomorrow. Instructed patient that we will not have her viral load and genotype back prior to discharge and that she will need to follow up with us in the office and that she can call our office on Wednesday to obtain these results. She verbalizes understanding. - IUP. S/P vaginal delivery at 38 weeks yesterday. PLAN: - COCO - HCV Genotype and viral load - FU NENA 1 month - Call office on Wednesday for test results - Absolutely no ETOH/Illicit drug use - Instructed pt not to breastfeed if cracked or bleeding nipples - Pt seen and examined by Dr. Jj and myself and this note is written on his behalf (Kayla Young) Physician Comments Seen and examined with [facility], new diagnosis HEP C with IVDA. HIV -ve. Risk of vertical transmission about 5% if Viremia confirmed. Ok to breast feed. Confirmatory testing ordered. GI fu upon dc in 02 weeks. Thank you (Lalo Jj MD) Kayla Young Feb 24, 2017 09:32 Lalo Jj MD Feb 24, 2017 15:16
[2017-02-24] MEDS: ACETAMINOPHEN 325 MG TAB PO PRN (13:45)
[2017-02-25] MEDS: ACETAMINOPHEN 325 MG TAB PO PRN ×2 (03:58→09:42)
[2017-02-25] MEDS: IBUPROFEN 600 MG TAB PO PRN ×2 (03:59→09:42)
[2017-02-25] MEDS ORDERED: ACET1TAB86 PO (06:30)
[2017-02-25] MEDS ORDERED: IBUP-232 PO (06:30)
[2017-02-25] MEDS ORDERED: PRENTAB PO (06:30)
--- NOTE | 2017-02-25 06:31 | HHI.DCPOC ---
Discharge Care Plan Diagnosis: (1) with 38 completed weeks gestation (2) Normal vaginal delivery Report Symptoms to Your Doctor -Temperature above 100.5 degrees -Redness, of incision or excessive or foul smelling drainage -Unusual pain or calf pain -Increased vaginal bleeding -Painful or difficulty urinating -Feelings of extreme sadness or anxiety after 2 weeks Goals to Promote Your Health * To prevent worsening of your condition and complications * To maintain your health at the optimal level Directions to Meet Your Goals Take your medications as prescribed Follow your dietary instruction Follow activity as directed Ensure plenty of rest for recovery Drink fluids for hydration Keep your appointments as scheduled Take your immunizations and boosters as scheduled If your symptoms worsen call your PCP, if no PCP go to Urgent Care Center or Emergency Room Smoking is Dangerous to Your Health. Avoid second hand smoke Call the 24-hour crisis hotline for domestic abuse at Kymberly Ramirez MD R1 Feb 25, 2017 06:31
--- NOTE | 2017-02-25 07:26 | HHI.OB ---
Subjective Post Day: 2 Remarks day # 2. AFVSS overnight. Decreased lochia. Denies dysuria. No breast tenderness. She is feeding the baby via formula. Appetite good. No nausea or vomiting. Ambulating well. Denies calf pain or shortness of breath. She asks questions about baby, who is currently in the nursery since last night and getting ROMAN scoring. Otherwise, she is doing well this morning and has no other concerns. (Kymberly Ramirez MD R1) Objective Vitals/I&O Vital Signs Date Time Temp Pulse Resp B/P Pulse Ox O2 Delivery O2 Flow Rate FiO2 02/24/17 08:00 98.4 16 02/24/17 08:00 75 140/84 Objective Remarks GENERAL: Well-nourished, well-developed female in no apparent distress. CARDIOVASCULAR: Regular rate and rhythm without murmurs, gallops, or rubs. RESPIRATORY: Breath sounds equal bilaterally. No accessory muscle use. ABDOMEN/GI: Abdomen soft, non-tender. Fundus: Firm, non-tender at umbilicus. GENITOURINARY: Light to moderate bleeding. EXTREMITIES: No cyanosis or edema, non-tender, without signs of DVT. Medications and IVs Current Medications Medications (Trade) Dose Ordered Sig/Rosanne Route Start Time Stop Time Status Last Admin Lactated Ringer's 1,000 ml @ 125 mls/hr Q8H IV 02/22/17 17:00 02/23/17 18:21 Lactated Ringer's 1,000 ml @ 3,000 mls/hr Q20M PRN IV 02/22/17 16:31 (NS 1000 ml Inj) 1,000 ml @ 100 mls/hr Q10H PRN IV 02/22/17 16:51 (Zofran Inj) 4 mg Q6H PRN IV 02/22/17 16:45 (fentaNYL INJ) 50 mcg Q1H PRN IV PUSH 02/22/17 16:45 02/23/17 07:05 (fentaNYL INJ) 100 mcg Q1H PRN IV PUSH 02/22/17 16:45 02/23/17 08:35 (Muri-Lube Oil) 10 ml UNSCH PRN TOPICAL 02/22/17 16:45 Zolpidem Tartrate 10 mg 10 mg HS PRN PO 02/22/17 22:00 02/22/17 22:30 Oxytocin 500 ml @ 0 mls/hr TITRATE IV 02/23/17 06:15 02/23/17 06:55 (fentaNYL 2MCG-BUPIV 0.125% INJ) 100 ml @ 0 mls/hr TITRATE EPIDURAL 02/23/17 12:30 (NS Flush) 2 ml BID IV FLUSH 02/23/17 22:45 (NS Flush) 2 ml UNSCH PRN IV FLUSH 02/23/17 22:45 (Tylenol) 650 mg Q4H PRN PO 02/23/17 22:45 02/25/17 03:58 (Motrin) 600 mg Q6H PRN PO 02/23/17 22:45 02/25/17 03:59 (Americaine 20% Top Spr) 1 spray Q4H PRN TOPICAL 02/23/17 22:45 02/24/17 01:26 (Tucks Pads) 1 applic QID PRN TOPICAL 02/23/17 22:45 02/24/17 01:26 (Paty-Colace) 2 tab Q12H PRN PO 02/23/17 22:45 (Mag-Al Plus Susp Liq) 15 ml Q8H PRN PO 02/23/17 22:45 (Zofran Odt) 4 mg Q6H PRN PO 02/23/17 22:45 (Kymberly Ramirez MD R1) Assessment/Plan Problem List: (1) Poor patient attendance of care (2) Tobacco use complicating (3) History of opioid abuse (4) Previous stillbirth or demise, antepartum (5) with 38 completed weeks gestation Assessment and Plan 36 year old [id number] who is PPD#2 s/p . Post- -Continue routine care. -Tylenol and Motrin PRN pain. -Encouraged OOB. Advised pelvic rest for 6 wks. -Re: ctrl, she is undecided and plans to talk to provider at [facility] at follow -up. -Anticipate discharge today. History of opiate abuse Reports using "opiates" via IV as late as 3 months into . On interview yesterday, she endorsed use of IV dilaudid and oxycodone. UDS is negative for opiates, positive for cannabinoids Hepatitis C positive Antibody positive on labs collected at admission LFTs are mildly elevated, patient is asymptomatic GI consulted as outpatient, viral load pending and she will need to follow up with GI next week for results and in two weeks for appointment Baby will need screening hep C RNA testing at [address] Waterman (Kymberly Ramirez MD R1) Collaborating MD Comments Agree with exam and management plans (Samantha Waterman MD) Kymberly Ramirez MD R1 Feb 25, 2017 07:26 Samantha Waterman MD Feb 25, 2017 07:53
[2017-02-25 08:10] VITALS: BP 139/77; PULSE 69; RESP 18; TEMP 98.8
[2017-02-25] MEDS ORDERED: DIPHTH/TETANUS/ACEL PERTUSSIS (BOOSTER) 0.5 ML VIAL/PFS IM ONE (16:00)
[2017-02-26 13:51] LABS: HCV RNA PCR IU/ML 801000 IU/mL (())
[2017-02-26 15:42] LABS: PHENCYCLIDINE URINE NEG (NEG)
[2017-02-26 15:43] LABS: BATH SALTS (MDPV) UR NEG (NEG); ECSTASY (MDMA) UR NEG (NEG); GABAPENTIN UR NEG (NEG); HEROIN (6-ACETYLMORPHINE) UR NEG (NEG); K2 SPICE UR NEG (NEG); OBMETHADONE UR NEG (NEG)
[2017-02-26 15:47] LABS: OXYCODONE (PERCODAN) POS (NEG)
[2017-02-26 15:48] LABS: HYDROMORPHONE U POS (NEG)
[2017-02-26 17:52] LABS: HEPATITIS C RNA GENOTYPE 1a (())
[2017-03-03] MEDS ORDERED: PROC2.5C RECTAL ×2 (09:55→15:03)
== END 2017-02-25 13:21 | disposition home or self-care (01) | DRG 774 ==
LOC: H2EB 16:27 → H1EA 02-24 00:22
PROVIDERS: ADMIT Obstetrics & Gynecology Maternal & Fetal Medicine; ATTEND Obstetrics & Gynecology Maternal & Fetal Medicine
PROC: 3E0P7GC Introduction of Other Therapeutic Substance into Female Reproductive, Via Natural or Artificial Opening (ICD-10-PCS; 2017-02-22)
PROC: 10E0XZZ Delivery of Products of Conception, External Approach (ICD-10-PCS; principal; 2017-02-23)
PROC: 10907ZC Drainage of Amniotic Fluid, Therapeutic from Products of Conception, Via Natural or Artificial Opening (ICD-10-PCS; 2017-02-23)
PROC: 3E0S3CZ (ICD-10-PCS; 2017-02-23)
PROC: 00HU33Z Insertion of Infusion Device into Spinal Canal, Percutaneous Approach (ICD-10-PCS; 2017-02-23)
DX: O36.5930 Maternal care for other known or suspected poor fetal growth, third trimester, not applicable or unspecified (principal); O98.42 Viral hepatitis complicating childbirth; B19.20 Unspecified viral hepatitis C without hepatic coma; O99.324 Drug use complicating childbirth; F12.90 Cannabis use, unspecified, uncomplicated; O99.321 Drug use complicating pregnancy, first trimester; F11.10 Opioid abuse, uncomplicated; O99.334 Smoking (tobacco) complicating childbirth; F17.210 Nicotine dependence, cigarettes, uncomplicated; O09.523 Supervision of elderly multigravida, third trimester; O09.33 Supervision of pregnancy with insufficient antenatal care, third trimester; O70.0 First degree perineal laceration during delivery; Z37.0 Single live birth; Z3A.38 38 weeks gestation of pregnancy
CPT/HCPCS: 80053; 80074; 80307; 81001; 85025; 86592; 86703; 86762; 86900; 86901; 87081; 87150; 87522; 87902; 88307; 90715; G0481; J2590; J3010; J7120